=== PATIENT | male | born 1945 | race African-American/Black ===

== ENCOUNTER 2019-06-30 08:14 | Emergency (ER) | payer MEDICARE, MEDICAID ==
[2019-06-30] MEDS ORDERED: Dextrose 50% Abboject 50 ML SYRINGE ONE (08:20)
[2019-06-30] MEDS ORDERED: Dextrose 5 % And 0.9 % NaCl 1,000 ML ONE ×2 (08:46→11:27)
[2019-06-30 09:27] LABS: #Lymphocytes 0.7 thou/uL (1.20-3.40); #Monocytes 0.3 thou/uL (0.11-0.59); #Neutrophils 8.7 thou/uL (1.40-6.50); %Basophils 0.3 % (0.0-1.0); %Lymphocytes 7.3 % (21.0-51.0); %Monocytes 2.7 % (0.0-10.0); %Neutrophils 89.7 % (42.0-75.0); Hemoglobin 10.5 g/dL (14.0-18.0); Mean Corpuscular HGB CONC 32.1 g/dL (32.0-36.0); Mean Corpuscular Volume 90.4 fL (78.0-98.0); Mean Platelet Volume 6.4 fL (7.4-10.4); Platelet Count 276 thou/uL (130-400); RBC Distribution Width 15.9 % (11.5-14.5); Red Blood Cell (RBC) Count 3.61 mill/uL (4.70-6.10); White Blood Cell (WBC) Count 9.7 thou/uL (4.8-10.8)
[2019-06-30 09:43] LABS: ALT (SGPT) 12 U/L (8-55); AST (SGOT) 15 U/L (5-34); Albumin 3.7 g/dL (3.4-4.8); Alkaline Phosphatase 70 U/L (40-150); Anion Gap 18 mmol/L (10-20); BUN (Urea Nitrogen) 23 mg/dL (8.4-25.7); Bilirubin, Total 0.3 mg/dL (0.2-1.2); Calc. Creatinine Clearance 0 mL/min (70-130); Calcium 8.9 mg/dL (7.8-10.44); Carbon Dioxide 23 mmol/L (23-31); Chloride 98 mmol/L (98-107); Estimated GFR-MDRD 85; Glucose 166 mg/dL (83-110); Lipase 36 U/L (8-78); Potassium 4.8 mmol/L (3.5-5.1); Protein, Total 6.7 g/dL (5.8-8.1); Sodium 134 mmol/L (136-145)
[2019-06-30] MEDS ORDERED: Pantoprazole 40 MG VIAL ONE (10:04)
[2019-06-30] MEDS ORDERED: Ondansetron PF 4 MG/2 ML Vial ONE (10:04)
--- NOTE | 2019-06-30 10:18 | RAD ---
ACUTE ABDOMINAL SERIES: INDICATIONS: Nausea and vomiting. FINDINGS: There is a Mach line overlying the right chest. There is elevation of the left hemidiaphragm and karlene ntration of the medial and right hemidiaphragm. The cardiac silhouette is accentuated. Evaluation o f the supine view of the abdomen reveals diffuse gaseous distention of bowel of the abdomen and pelvi s. There are numerous radiopaque, ovoid densities overlying the right lower abdomen, indicating amol sted medication tablets. Limited evaluation for free air on the basis of supine positioning. IMPRESSION: Diffuse gaseous distention of the bowel of the abdomen and pelvis, which may be on the basis of an ad ynamic ileus. Correlate clinically. Recommend continued imaging followup to confirm resolution. POS: Jose A
[2019-06-30] MEDS ORDERED: Lorazepam 2 MG/ML VIAL ONE (10:19)
[2019-06-30] MEDS ORDERED: Iopamidol 370 76% 100 ML VIAL ONE (10:23)
--- NOTE | 2019-06-30 11:23 | CT ---
CT OF THE ABDOMEN AND PELVIS WITH IV CONTRAST INDICATION: Abdominal pain and distention COMPARISON: None FINDINGS: ABDOMEN: Lung bases: Small bilateral pleural effusions and bibasilar atelectasis. There is a large hiatal [place] containing fluid. There is wall thickening involving the gastric body and duodenum. Liver: No focal lesion. Gallbladder: Not visualized Pancreas: Normal. Adrenal glands: Normal. Spleen: Normal. Kidneys: 2.6 mm right mid kidney stone. No hydronephrosis. 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 Retroperitoneum of the upper abdomen: There are moderate vascular calcifications seen involving the v isualized vasculature. Pelvis: Small and large bowel: There is a prominent gaseous distention of loops of colon. There is a normal a ppendix in the right lower quadrant. The small bowel is of normal caliber. Bladder: There is moderate to prominent dilatation of the bladder. Rectal and perirectal soft tissues:Gaseous distention of the rectum Reproductive structures: Prostate gland measures 5.5 cm Free fluid in pelvis: No free fluid is evident. Lymphadenopathy pelvis: No lymphadenopathy is evident. Osseous structures: No acute osseous abnormality. No destructive osteolytic or osteoblastic lesion i s identified. There is scattered degenerative and osteoarthritic changes. IMPRESSION: 1. Wall thickening involving the distal gastric body and proximal duodenum may be related to underdis tention; however, a gastroenteritis from peptic ulcer disease or an infectious gastroenteritis cannot be entirely excluded. 2. Large hiatal hernia 3. Gaseous distention of the colon may reflect colonic ileus. 4. Prominent dilatation of the bladder is suspicious for bladder outlet obstruction. 5. Small bilateral pleural effusions 6. Right nephrolithiasis
== END 2019-06-30 12:40 | disposition short-term general hospital (02) ==
LOC: MADERS 08:14
DX: E11.649 Type 2 diabetes mellitus with hypoglycemia without coma (principal); K29.00 Acute gastritis without bleeding; K56.7 Ileus, unspecified; D64.9 Anemia, unspecified; M10.9 Gout, unspecified; N40.0 Benign prostatic hyperplasia without lower urinary tract symptoms; E78.5 Hyperlipidemia, unspecified; E78.00 Pure hypercholesterolemia, unspecified; I10 Essential (primary) hypertension; F17.220 Nicotine dependence, chewing tobacco, uncomplicated; Z79.84 Long term (current) use of oral hypoglycemic drugs
CPT/HCPCS: 36416; 74022; 74177; 80053; 82150; 83690; 85025; 94760; 96361; 96374; 96375; C9113; J2060; J2405; J7042; Q9967